=== PATIENT | female | born 1975 | race Caucasian/White ===

== ENCOUNTER 2021-10-15 13:31 | Emergency (ER) | payer OTHER ==
[2021-10-15] MEDS ORDERED: hydrOXYzine HCl 50 MG/ML SDV IM ONE (13:39)
[2021-10-15] MEDS ORDERED: cloNIDine 0.1 MG Tab PO ONE (13:39)
[2021-10-15 14:53] LABS: ANION GAP 12.8 mmol/L (5-15); CHLORIDE,CL 102 mmol/L (98-107); ESTIMATED GFR 92 mL/min (>=60); SODIUM,NA 138 mmol/L (136-145)
== END 2021-10-15 15:17 | disposition home or self-care (01) ==
LOC: VM.ED 13:31
DX: R07.89 Other chest pain (principal); F41.0 Panic disorder [episodic paroxysmal anxiety]; Z88.8 Allergy status to other drugs, medicaments and biological substances
CPT/HCPCS: 36415; 71045; 80053; 84484; 85025; 85379; 93005; 96372; 99283; 99285-25; A9270-GY; J3410

== ENCOUNTER 2024-01-25 14:45 | Emergency (ER) | payer OTHER ==
[2024-01-25 15:48] LABS: CORONAVIRUS COVID-19 NAA NEGATIVE (NEGATIVE); INFLUENZA A NAA NEGATIVE (NEGATIVE); INFLUENZA B NAA NEGATIVE (NEGATIVE); RESPIRATORY SYNCYTIAL VIR NAA NEGATIVE (NEGATIVE)
== END 2024-01-25 15:57 | disposition home or self-care (01) ==
LOC: VM.ED 14:45
DX: J06.9 Acute upper respiratory infection, unspecified (principal); B97.89 Other viral agents as the cause of diseases classified elsewhere; Z79.899 Other long term (current) drug therapy; Z88.8 Allergy status to other drugs, medicaments and biological substances
CPT/HCPCS: 0241U; 71045; 87651-QW; 99283

== ENCOUNTER 2024-11-14 07:04 | Emergency (ER) | payer OTHER ==
[2024-11-14] MEDS: Phenazopyridine 95 MG Tab PO ONE (07:43)
[2024-11-14 14:55] LABS: APPEARANCE,URINE TURBID (CLEAR); GLUCOSE,URINE 100 mg/dL (NEGATIVE)
[2024-11-14 14:56] LABS: OCCULT BLOOD,URINE LARGE (NEGATIVE)
[2024-11-14 14:57] LABS: SQUAMOUS EPITHELIAL CELLS,UR FEW /HPF (NOT SEEN)
== END 2024-11-14 07:45 | disposition home or self-care (01) ==
LOC: VM.ED 07:04
DX: N39.0 Urinary tract infection, site not specified (principal); Z88.8 Allergy status to other drugs, medicaments and biological substances; Z79.899 Other long term (current) drug therapy
CPT/HCPCS: 81001; 87086; 87088; 87186; 99283; 99284; A9270-GY

== ENCOUNTER 2025-03-19 09:44 | Emergency (ER) | payer OTHER ==
[2025-03-19 09:55] LABS: APPEARANCE,URINE TURBID (CLEAR); GLUCOSE,URINE NEGATIVE (NEGATIVE); OCCULT BLOOD,URINE LARGE (NEGATIVE)
[2025-03-19 10:04] LABS: SQUAMOUS EPITHELIAL CELLS,UR RARE /HPF (NOT SEEN); WBC CASTS,URINE RARE /HPF (NOT SEEN)
== END 2025-03-19 11:02 | disposition home or self-care (01) ==
LOC: SUPCPDRO 09:44 → VM.ED 09:44
DX: N39.0 Urinary tract infection, site not specified (principal); Z88.8 Allergy status to other drugs, medicaments and biological substances; Z79.899 Other long term (current) drug therapy
CPT/HCPCS: 81001; 87086; 99284